=== PATIENT | male | born 1940 | race Caucasian/White ===

== ENCOUNTER → 2017-03-05 | Outpatient (CLI) | payer MEDICARE ==
[~2017-03-05] MED LIST: ATOR80TA PO; CLOP75TA22 PO; FENT-58 TD; GABA600T2 PO; LEVO750T26 PO; MELO-184 PO; METO25TA35 PO; OMEP40CA6 PO; OXYC15TA PO; TAMS-11 PO; ZOLP10TA PO
[2017-03-05 12:19] LABS: BLOOD UREA NITROGEN 10 mg/dL (7-18)
[2017-03-05 12:24] LABS: ASPARTATE AMINO TRANSFERASE 15 U/L (15-37)
== END | disposition home or self-care (01) ==
LOC: STAR 10:50
PROVIDERS: ATTEND Neurological Surgery
DX: Z01.818 Encounter for other preprocedural examination (principal); M48.06 Spinal stenosis, lumbar region; Z98.890 Other specified postprocedural states
CPT/HCPCS: 36415; 71020; 80053; 81003; 85025; 85610; 85730; 93005

== ENCOUNTER 2017-03-13 08:54 | Inpatient (IN) | payer MEDICARE ==
[~2017-03-13] VITALS: Ht 170.2 cm; Wt 62.9 kg
[~2017-03-13 08:54] MED LIST changes: +BACITRACIN 50,000 UNIT ONE; +BUPIVACAINE/PF-EPI 0.5% 1:200K ONE; -CLOP75TA22 PO; +CLOP75TA52 PO; -MELO-184 PO; +MELO15TA24 PO; +THROMBIN 5,000 UNIT VIAL TP ONE
[2017-03-13] MEDS ORDERED: LACTATED RINGERS 1,000 ML IV SCH (09:25)
[2017-03-13] MEDS ORDERED: NITR0.4T28 SL (09:30)
[2017-03-13] MEDS ORDERED: METF500T4 PO (09:30)
[2017-03-13] MEDS ORDERED: CARI350T PO (09:30)
[2017-03-13] MEDS ORDERED: LIDOCAINE 1%, 2ML SQ PRN (09:30)
[2017-03-13] MEDS ORDERED: FINA5TAB4 PO (09:30)
[2017-03-13] MEDS ORDERED: VANCOMYCIN 1,000 MG ONE (10:46)
[2017-03-13] MEDS ORDERED: FENTANYL PF 250 MCG/5ML ONE (10:56)
[2017-03-13] MEDS ORDERED: MIDAZOLAM 1 MG/ML, 2ML ONE (10:57)
[2017-03-13] MEDS ORDERED: ROCURONIUM 10 MG/ML ONE (11:40)
[2017-03-13] MEDS ORDERED: PROPOFOL 10 MG/ML, 20ML ONE (11:40)
[2017-03-13] MEDS ORDERED: DEXAMETHASONE 4 MG/ML, 1ML ONE (11:40)
[2017-03-13] MEDS ORDERED: PHENYLEPHRINE 10 MG/ML ONE (11:40)
[2017-03-13] MEDS ORDERED: ONDANSETRON 2MG/ML, 2ML ONE (11:40)
[2017-03-13] MEDS ORDERED: SUCCINYLCHOLINE 20 MG/ML, 10ML ONE (11:40)
[2017-03-13] MEDS ORDERED: CEFAZOLIN 1,000 MG ONE (11:40)
[2017-03-13] MEDS ORDERED: HYDROmorphone 2 MG/ML, 1ML ONE ×2 (13:30→13:57)
[2017-03-13] MEDS ORDERED: FENTANYL PF 100 MCG/2ML ONE (13:51)
[2017-03-13] MEDS ORDERED: ACETAMINOPHEN 650 MG/20.3 ML UDC ONE (13:51)
[2017-03-13] MEDS ORDERED: HYDROmorphone 1 MG/ML, 1ML ONE (13:51)
[2017-03-13] MEDS ORDERED: ACETAMINOPHEN 325 MG TABLET ONE (13:51)
[2017-03-13] MEDS ORDERED: OXYcodone 5 MG/5 ML ORAL.SOL UDC ONE (13:51)
[2017-03-13] MEDS: FENTANYL PF 100 MCG/2ML IV PRN ×2 (13:57→14:02)
[2017-03-13] MEDS: HYDROmorphone 1 MG/ML, 1ML IV PRN ×4 (13:58→15:00)
[2017-03-13] MEDS ORDERED: OXYcodone 5 MG/5 ML ORAL.SOL UDC PO PRN (14:00)
[2017-03-13] MEDS ORDERED: hydrALAzine 20 MG/ML, 1ML IV PRN (14:00)
[2017-03-13] MEDS ORDERED: MEPERIDINE/PF 25MG/0.5ML IVPush PRN (14:00)
[2017-03-13] MEDS ORDERED: PROMETHAZINE 25 MG/ML, 1ML IV PRN (14:00)
[2017-03-13] MEDS ORDERED: ACETAMINOPHEN 325 MG TABLET PO PRN (14:00)
[2017-03-13] MEDS ORDERED: MIDAZOLAM 1 MG/ML, 2ML IV PRN (14:00)
[2017-03-13] MEDS ORDERED: LABETALOL 5MG/ML, 20ML IV PRN ×2 (14:00→16:30)
[2017-03-13] MEDS ORDERED: ONDANSETRON 2MG/ML, 2ML IVPush PRN (14:00)
[2017-03-13] MEDS ORDERED: METOCLOPRAMIDE 5 MG/ML, 2ML IV PRN (14:00)
[2017-03-13] MEDS ORDERED: DIAZEPAM 5 MG/ML, 2ML ONE (14:12)
[2017-03-13] MEDS ORDERED: DIAZEPAM 5 MG/ML, 2ML IV ONE (14:30)
[2017-03-13 16:18] VITALS: BP 92/48
[2017-03-13] MEDS ORDERED: NITROGLYCERIN 0.4 MG BOTTLE (25 TABS) SL PRN (16:30)
[2017-03-13] MEDS ORDERED: BISACODYL 10 MG SUPP PR PRN (16:30)
[2017-03-13] MEDS ORDERED: DIPHENHYDRAMINE 50 MG CAPSULE PO PRN (16:30)
[2017-03-13] MEDS ORDERED: DIAZEPAM 5 MG/ML, 2ML IV PRN (16:30)
[2017-03-13] MEDS ORDERED: OXYcodone/APAP 5/325MG TABLET PO PRN (16:30)
[2017-03-13] MEDS ORDERED: MAGNESIUM HYDROXIDE 8%, 30ML UDC PO PRN (16:30)
[2017-03-13] MEDS ORDERED: PROMETHAZINE 25 MG/ML, 1ML IM PRN (16:30)
[2017-03-13] MEDS ORDERED: DIPHENHYDRAMINE 50 MG/ML, 1ML IM PRN (16:30)
[2017-03-13] MEDS ORDERED: morphine SULFATE 10 MG/ML, 1ML IV PRN (16:30)
[2017-03-13] MEDS ORDERED: DIPHENHYDRAMINE 50 MG/ML, 1ML IVPush PRN (16:30)
[2017-03-13] MEDS ORDERED: ONDANSETRON 2MG/ML, 2ML IV PRN (16:30)
[2017-03-13] MEDS: NS + 20MEQ KCL 1,000 ML IV SCH (17:53)
[2017-03-13] MEDS: metFORMIN 500 MG TABLET PO SCH (17:53)
[2017-03-13] MEDS: METOPROLOL TARTRATE 25 MG TABLET PO SCH (17:53)
[2017-03-13] MEDS: FENTANYL REMOVE PATCH NOTE XX SCH (18:24)
[2017-03-13] MEDS: FENTANYL 100 MCG PATCH TD SCH (18:24)
[2017-03-13 19:43] VITALS: BP 95/48
[2017-03-13] MEDS: CEFAZOLIN PMX 1GM/50ML 50 ML IVPB SCH (20:02)
[2017-03-13] MEDS: ATORVASTATIN 80 MG TABLET PO SCH (20:40)
[2017-03-13] MEDS: TAMSULOSIN 0.4 MG CAP.ER.24H PO SCH (20:40)
[2017-03-13] MEDS: OxyconTIN ER 15 MG TAB.ER PO SCH (20:40)
[2017-03-13] MEDS: GABAPENTIN 400 MG CAPSULE PO SCH (20:40)
[2017-03-13] MEDS: OMEPRAZOLE 20 MG CAPSULE.DR PO SCH (20:40)
[2017-03-13] MEDS: FINASTERIDE 5 MG TABLET PO SCH (20:40)
[2017-03-13] MEDS: ZOLPIDEM 10MG TABLET PO SCH (20:42)
[2017-03-13] MEDS: INSULIN REGULAR 100 UNITS/ML, 3ML VIAL SQ-INSULIN SCH (21:52)
[2017-03-14 00:19] VITALS: BP 103/57
[2017-03-14 02:52] VITALS: BP 104/55
[2017-03-14] MEDS: CEFAZOLIN PMX 1GM/50ML 50 ML IVPB SCH (04:02)
[2017-03-14] MEDS: NS + 20MEQ KCL 1,000 ML IV SCH ×2 (04:02→12:28)
[2017-03-14] MEDS: DIAZEPAM 5 MG TABLET PO PRN ×2 (04:06→15:49)
[2017-03-14 05:46] LABS: HEMATOCRIT 36.6 % (39.2-51.8); HEMOGLOBIN 12.2 g/dL (13.7-18.0)
[2017-03-14] MEDS: METOPROLOL TARTRATE 25 MG TABLET PO SCH ×2 (06:27→16:42)
[2017-03-14 06:30] LABS: BLOOD UREA NITROGEN 8 mg/dL (7-18)
[2017-03-14] MEDS: INSULIN REGULAR 100 UNITS/ML, 3ML VIAL SQ-INSULIN SCH ×4 (07:40→20:48)
[2017-03-14] MEDS: GABAPENTIN 400 MG CAPSULE PO SCH ×3 (08:26→20:41)
[2017-03-14] MEDS: metFORMIN 500 MG TABLET PO SCH ×2 (08:26→16:42)
[2017-03-14] MEDS: OMEPRAZOLE 20 MG CAPSULE.DR PO SCH ×2 (08:26→20:40)
[2017-03-14 08:27] VITALS: BP 107/55
[2017-03-14] MEDS: SENNA/DOCUSATE TABLET PO SCH (08:27)
[2017-03-14] MEDS: OxyconTIN ER 15 MG TAB.ER PO SCH (08:27)
[2017-03-14] MEDS ORDERED: OXYcodone IR 5MG TABLET PO PRN (10:30)
[2017-03-14] MEDS ORDERED: OXYcodone IR 30 MG TABLET PO PRN (11:00)
[2017-03-14 12:31] VITALS: BP 102/53
[2017-03-14] MEDS: HYDROcodone/APAP 5/325 TABLET PO PRN (15:49)
[2017-03-14 16:40] VITALS: BP 111/57
[2017-03-14 18:39] VITALS: BP 111/60
[2017-03-14] MEDS: ATORVASTATIN 80 MG TABLET PO SCH (20:40)
[2017-03-14] MEDS: TAMSULOSIN 0.4 MG CAP.ER.24H PO SCH (20:41)
[2017-03-14] MEDS: FINASTERIDE 5 MG TABLET PO SCH (20:41)
[2017-03-14] MEDS: ZOLPIDEM 10MG TABLET PO SCH (21:00)
[2017-03-15] MEDS: DIAZEPAM 5 MG TABLET PO PRN ×2 (00:25→07:07)
[2017-03-15] MEDS: HYDROcodone/APAP 5/325 TABLET PO PRN ×2 (00:25→07:07)
[2017-03-15] MEDS: NS + 20MEQ KCL 1,000 ML IV SCH ×2 (01:04→18:25)
[2017-03-15 01:12] VITALS: BP 91/54
[2017-03-15 05:28] LABS: HEMATOCRIT 40.6 % (39.2-51.8); HEMOGLOBIN 13.5 g/dL (13.7-18.0); WHITE BLOOD COUNT 11.3 x10^3/uL (3.4-10)
[2017-03-15 06:01] LABS: BLOOD UREA NITROGEN 6 mg/dL (7-18)
[2017-03-15 06:35] VITALS: BP 116/58
[2017-03-15] MEDS: INSULIN REGULAR 100 UNITS/ML, 3ML VIAL SQ-INSULIN SCH ×4 (06:43→21:00)
[2017-03-15] MEDS: METOPROLOL TARTRATE 25 MG TABLET PO SCH ×2 (06:43→17:08)
[2017-03-15] MEDS ORDERED: NICOTINE 21 MG/24 HR PATCH.TD24 TD ONE (09:00)
[2017-03-15] MEDS: SENNA/DOCUSATE TABLET PO SCH (10:25)
[2017-03-15] MEDS: OMEPRAZOLE 20 MG CAPSULE.DR PO SCH ×2 (10:25→20:55)
[2017-03-15] MEDS: GABAPENTIN 400 MG CAPSULE PO SCH ×3 (10:25→20:55)
[2017-03-15] MEDS: metFORMIN 500 MG TABLET PO SCH ×2 (10:25→17:08)
[2017-03-15] MEDS: OXYcodone IR 30 MG TABLET PO PRN ×2 (13:08→22:26)
[2017-03-15 15:12] VITALS: BP 120/67
[2017-03-15 19:16] VITALS: BP 132/71
[2017-03-15] MEDS: ZOLPIDEM 10MG TABLET PO SCH (20:55)
[2017-03-15] MEDS: FINASTERIDE 5 MG TABLET PO SCH (20:55)
[2017-03-15] MEDS: ATORVASTATIN 80 MG TABLET PO SCH (20:55)
[2017-03-15] MEDS: TAMSULOSIN 0.4 MG CAP.ER.24H PO SCH (20:55)
[2017-03-16 02:00] VITALS: BP 108/67
[2017-03-16] MEDS: METOPROLOL TARTRATE 25 MG TABLET PO SCH ×2 (05:51→17:37)
[2017-03-16] MEDS: OXYcodone IR 30 MG TABLET PO PRN (05:51)
[2017-03-16 05:53] VITALS: BP 110/69
[2017-03-16 06:01] LABS: BLOOD UREA NITROGEN 7 mg/dL (7-18)
[2017-03-16 06:30] VITALS: BP 90/51
[2017-03-16 06:55] LABS: HEMATOCRIT 36.8 % (39.2-51.8); HEMOGLOBIN 12.4 g/dL (13.7-18.0); WHITE BLOOD COUNT 11.7 x10^3/uL (3.4-10)
[2017-03-16] MEDS: NS + 20MEQ KCL 1,000 ML IV SCH ×2 (07:00→19:30)
[2017-03-16] MEDS: INSULIN REGULAR 100 UNITS/ML, 3ML VIAL SQ-INSULIN SCH ×4 (07:00→20:41)
[2017-03-16] MEDS: GABAPENTIN 400 MG CAPSULE PO SCH ×3 (08:50→20:44)
[2017-03-16] MEDS: SENNA/DOCUSATE TABLET PO SCH (08:50)
[2017-03-16] MEDS: OMEPRAZOLE 20 MG CAPSULE.DR PO SCH ×2 (08:50→20:44)
[2017-03-16] MEDS: metFORMIN 500 MG TABLET PO SCH ×2 (08:50→17:37)
[2017-03-16] MEDS: NICOTINE 21 MG/24 HR PATCH.TD24 TD SCH (12:16)
[2017-03-16 13:03] VITALS: BP 94/58
[2017-03-16] MEDS: OXYcodone IR 5MG TABLET PO PRN ×2 (14:57→20:54)
[2017-03-16] MEDS ORDERED: OXYcodone IR 5MG TABLET PO PRN (15:00)
[2017-03-16] MEDS: TIZANIDINE 4MG TABLET PO PRN (16:20)
[2017-03-16] MEDS: FENTANYL REMOVE PATCH NOTE XX SCH (16:30)
[2017-03-16] MEDS ORDERED: DIAZEPAM 5 MG/ML, 2ML IV PRN (16:30)
[2017-03-16] MEDS: FENTANYL 100 MCG PATCH TD SCH (16:30)
[2017-03-16 19:57] VITALS: BP 104/65
[2017-03-16] MEDS: TAMSULOSIN 0.4 MG CAP.ER.24H PO SCH (20:43)
[2017-03-16] MEDS: ZOLPIDEM 10MG TABLET PO SCH (20:43)
[2017-03-16] MEDS: FINASTERIDE 5 MG TABLET PO SCH (20:44)
[2017-03-16] MEDS: ATORVASTATIN 80 MG TABLET PO SCH (20:44)
[2017-03-17] MEDS: TIZANIDINE 4MG TABLET PO PRN (01:07)
[2017-03-17 03:15] VITALS: BP 139/73
[2017-03-17] MEDS: OXYcodone IR 5MG TABLET PO PRN ×4 (03:54→21:26)
[2017-03-17 06:02] VITALS: BP 102/62
[2017-03-17] MEDS: METOPROLOL TARTRATE 25 MG TABLET PO SCH ×2 (06:05→18:20)
[2017-03-17] MEDS: INSULIN REGULAR 100 UNITS/ML, 3ML VIAL SQ-INSULIN SCH ×4 (07:00→21:00)
[2017-03-17 07:55] VITALS: BP 111/64
[2017-03-17] MEDS: NS + 20MEQ KCL 1,000 ML IV SCH ×2 (08:00→20:30)
[2017-03-17] MEDS: metFORMIN 500 MG TABLET PO SCH ×2 (08:42→18:20)
[2017-03-17] MEDS: GABAPENTIN 400 MG CAPSULE PO SCH ×3 (08:42→21:26)
[2017-03-17] MEDS: OMEPRAZOLE 20 MG CAPSULE.DR PO SCH ×2 (08:43→21:26)
[2017-03-17] MEDS: NICOTINE 21 MG/24 HR PATCH.TD24 TD SCH (08:46)
[2017-03-17 08:56] LABS: ASPARTATE AMINO TRANSFERASE 58 U/L (15-37); BLOOD UREA NITROGEN 12 mg/dL (7-18)
[2017-03-17] MEDS: SENNA/DOCUSATE TABLET PO SCH (09:00)
[2017-03-17 09:01] LABS: HEMATOCRIT 39.7 % (39.2-51.8); HEMOGLOBIN 13.2 g/dL (13.7-18.0); WHITE BLOOD COUNT 9.5 x10^3/uL (3.4-10)
[2017-03-17 13:02] VITALS: BP 108/64
[2017-03-17] MEDS: DIAZEPAM 5 MG TABLET PO PRN (14:14)
[2017-03-17 19:20] VITALS: BP 126/67
[2017-03-17] MEDS: TAMSULOSIN 0.4 MG CAP.ER.24H PO SCH (21:26)
[2017-03-17] MEDS: ATORVASTATIN 80 MG TABLET PO SCH (21:26)
[2017-03-17] MEDS: FINASTERIDE 5 MG TABLET PO SCH (21:26)
[2017-03-17] MEDS: ZOLPIDEM 10MG TABLET PO SCH (21:26)
[2017-03-18 02:18] VITALS: BP 104/65
[2017-03-18] MEDS: OXYcodone IR 5MG TABLET PO PRN ×3 (05:27→22:56)
[2017-03-18] MEDS: DIAZEPAM 5 MG TABLET PO PRN (05:27)
[2017-03-18 05:39] VITALS: BP 100/54
[2017-03-18] MEDS: METOPROLOL TARTRATE 25 MG TABLET PO SCH ×2 (06:21→17:38)
[2017-03-18] MEDS: INSULIN REGULAR 100 UNITS/ML, 3ML VIAL SQ-INSULIN SCH ×4 (07:00→20:31)
[2017-03-18 07:03] VITALS: BP 96/57
[2017-03-18] MEDS: SENNA/DOCUSATE TABLET PO SCH (09:00)
[2017-03-18] MEDS: NS + 20MEQ KCL 1,000 ML IV SCH ×2 (09:00→20:32)
[2017-03-18] MEDS: GABAPENTIN 400 MG CAPSULE PO SCH ×3 (09:25→20:27)
[2017-03-18] MEDS: metFORMIN 500 MG TABLET PO SCH ×2 (09:25→17:36)
[2017-03-18] MEDS: OMEPRAZOLE 20 MG CAPSULE.DR PO SCH ×2 (09:25→20:28)
[2017-03-18] MEDS: NICOTINE 21 MG/24 HR PATCH.TD24 TD SCH (09:25)
[2017-03-18 15:56] VITALS: BP 115/71
[2017-03-18 17:23] LABS: IS PT STATUS REG ER OR PRE ER? NO
[2017-03-18 18:55] VITALS: BP 113/63
[2017-03-18] MEDS: ATORVASTATIN 80 MG TABLET PO SCH (20:28)
[2017-03-18] MEDS: FINASTERIDE 5 MG TABLET PO SCH (20:28)
[2017-03-18] MEDS: ZOLPIDEM 10MG TABLET PO SCH (20:31)
[2017-03-18] MEDS: TAMSULOSIN 0.4 MG CAP.ER.24H PO SCH (22:56)
[2017-03-18 22:58] VITALS: BP 105/64
[2017-03-19 03:21] VITALS: BP 118/70
[2017-03-19] MEDS: METOPROLOL TARTRATE 25 MG TABLET PO SCH ×2 (05:50→15:48)
[2017-03-19 05:53] VITALS: BP 118/67
[2017-03-19 06:22] LABS: BLOOD UREA NITROGEN 7 mg/dL (7-18)
[2017-03-19] MEDS: INSULIN REGULAR 100 UNITS/ML, 3ML VIAL SQ-INSULIN SCH ×3 (07:00→15:56)
[2017-03-19] MEDS: OXYcodone IR 5MG TABLET PO PRN ×3 (07:48→15:49)
[2017-03-19] MEDS: OMEPRAZOLE 20 MG CAPSULE.DR PO SCH (07:48)
[2017-03-19] MEDS: GABAPENTIN 400 MG CAPSULE PO SCH ×2 (07:49→15:50)
[2017-03-19] MEDS: TIZANIDINE 4MG TABLET PO PRN (07:50)
[2017-03-19] MEDS: NICOTINE 21 MG/24 HR PATCH.TD24 TD SCH (07:51)
[2017-03-19 07:52] VITALS: BP 101/63
[2017-03-19] MEDS: metFORMIN 500 MG TABLET PO SCH ×2 (08:10→15:48)
[2017-03-19] MEDS: SENNA/DOCUSATE TABLET PO SCH (09:00)
[2017-03-19 09:41] LABS: HEMATOCRIT 37.5 % (39.2-51.8); HEMOGLOBIN 12.6 g/dL (13.7-18.0); WHITE BLOOD COUNT 8.1 x10^3/uL (3.4-10)
[2017-03-19] MEDS ORDERED: POTASSIUM CHLORIDE 20 MEQ TAB.ER.PRT PO SCH (10:00)
[2017-03-19] MEDS: NS + 20MEQ KCL 1,000 ML IV SCH (10:00)
[2017-03-19 12:42] VITALS: BP 114/70
[2017-03-19] MEDS: FENTANYL 100 MCG PATCH TD SCH (15:47)
[2017-03-19] MEDS: FENTANYL REMOVE PATCH NOTE XX SCH (15:48)
== END 2017-03-19 16:11 | DRG 459 ==
LOC: ORIP 08:54 → 4NOR 16:09
PROVIDERS: ADMIT Neurological Surgery; ATTEND Neurological Surgery
PROC: 0SG1071 Fusion of 2 or more Lumbar Vertebral Joints with Autologous Tissue Substitute, Posterior Approach, Posterior Column, Open Approach (ICD-10-PCS; 2017-03-13)
PROC: 0SG3071 Fusion of Lumbosacral Joint with Autologous Tissue Substitute, Posterior Approach, Posterior Column, Open Approach (ICD-10-PCS; principal; 2017-03-13 12:15)
DX: M48.06 Spinal stenosis, lumbar region (principal); E43 Unspecified severe protein-calorie malnutrition; E11.9 Type 2 diabetes mellitus without complications; M41.9 Scoliosis, unspecified; E87.6 Hypokalemia; I25.10 Atherosclerotic heart disease of native coronary artery without angina pectoris; M54.10 Radiculopathy, site unspecified; Z95.1 Presence of aortocoronary bypass graft; Z95.5 Presence of coronary angioplasty implant and graft; Z88.0 Allergy status to penicillin; Z88.8 Allergy status to other drugs, medicaments and biological substances
CPT/HCPCS: 36415; 71010; 72100; 80048; 80053; 81003; 82962; 84484; 85025; 86850; 86900; 93005; J0690; J1100; J1170; J1815; J2250; J2270; J2405; J2704; J3010; J3360; J3370; J3480; J3490; C1762; J0330; J2370; J7120

== ENCOUNTER → 2017-08-22 | Outpatient (CLI) | payer MEDICARE ==
[~2017-08-22] MED LIST changes: -BACITRACIN 50,000 UNIT ONE; -BUPIVACAINE/PF-EPI 0.5% 1:200K ONE; +CARI350T PO; +FINA5TAB4 PO; +METF500T4 PO; +NITR0.4T28 SL; -THROMBIN 5,000 UNIT VIAL TP ONE
== END | disposition home or self-care (01) ==
LOC: CVU 08:38
PROVIDERS: ATTEND Internal Medicine Cardiovascular Disease
DX: I65.23 Occlusion and stenosis of bilateral carotid arteries (principal); I25.10 Atherosclerotic heart disease of native coronary artery without angina pectoris; E78.5 Hyperlipidemia, unspecified; I77.4 Celiac artery compression syndrome; I74.09 Other arterial embolism and thrombosis of abdominal aorta; I71.4 Abdominal aortic aneurysm, without rupture; Z95.1 Presence of aortocoronary bypass graft; I10 Essential (primary) hypertension; Z87.891 Personal history of nicotine dependence
CPT/HCPCS: 93880; 93922; 93925; 93978

== ENCOUNTER 2017-10-31 13:05 | Emergency (ER) | payer MEDICARE ==
[~2017-10-31] VITALS: Ht 170.2 cm; Wt 59.1 kg
[~2017-10-31 13:05] MED LIST changes: +ASPI-496 PO; +CARI350T14 PO; +DOXY25TA18 PO; +FLAX1000 PO; +GABA300C PO; +GLUC500T11 PO; +LORA10TA75 PO; +MULT-326 PO; +NITR0.4T SL; +OMEG-13 PO; +OMEG-137 PO; +SILD100T PO; +TOLT4CAP12 PO; +Vitamin B INJ
[2017-10-31 13:59] LABS: BASOPHILS # (AUTO) 0.03 x10^3/uL (0-0.1); BASOPHILS % (AUTO) 0 % (0-1); EOSINOPHILS # (AUTO) 0.19 x10^3/uL (0-0.4); EOSINOPHILS % (AUTO) 2 % (1-7); LYMPHOCYTES # (AUTO) 2.27 x10^3/uL (1-3.4); LYMPHOCYTES % (AUTO) 28 % (22-44); MD NO; MEAN CORPUSCULAR HEMOGLOBIN 30.2 pg (27.5-34.5); MEAN CORPUSCULAR HGB CONC 33.6 g/dL (33.2-36.2); MEAN PLATELET VOLUME 6.8 fL (7.4-10.4); MONOCYTES # (AUTO) 0.72 x10^3/uL (0.2-0.8); MONOCYTES % (AUTO) 9 % (2-9); NEUTROPHILS # (AUTO) 4.82 x10^3/uL (1.8-6.8); NEUTROPHILS % (AUTO) 60 % (42-75); PLATELET COUNT 231 x10^3/uL (130-400); RED BLOOD COUNT 4.42 x10^6/uL (4.38-5.82); RED CELL DISTRIBUTION WIDTH 17.5 % (9.4-14.8)
[2017-10-31] MEDS ORDERED: SODIUM CHLORIDE FLUSH 10ML SYR IVF ONE (14:00)
[2017-10-31 14:03] LABS: INTERNATIONAL NORMALIZED RATIO 1.13 (0.93-1.1); PROTHROMBIN TIME 11.7 Seconds (9.6-11.5)
[2017-10-31 14:06] LABS: ALANINE AMINOTRANSFERASE 31 U/L (12-78); ALBUMIN 3.3 g/dL (3.4-5.0); ANION GAP 10 mmol/L (5-15); CALCIUM 8.4 mg/dL (8.5-10.1); CHLORIDE 105 mmol/L (98-107); CREATININE 0.86 mg/dL (0.7-1.3)
[2017-10-31 14:08] LABS: ALKALINE PHOSPHATASE 100 U/L (45-117); BILIRUBIN,TOTAL 0.6 mg/dL (0.2-1.0); TOTAL PROTEIN 7.6 g/dL (6.4-8.2)
[2017-10-31] MEDS ORDERED: FENT1PAT77 TP (15:39)
[2017-10-31] MEDS ORDERED: CLOPIDOGREL 75 MG TABLET ONE (16:29)
[2017-10-31] MEDS ORDERED: CLOPIDOGREL 75 MG TABLET PO ONE (16:30)
[2017-10-31] MEDS ORDERED: CLOP75TA52 PO (16:34)
[2017-10-31 16:44] VITALS: BP 106/68
== END 2017-10-31 16:45 | disposition home or self-care (01) ==
LOC: ED 16:16
DX: R60.0 Localized edema (principal); M25.571 Pain in right ankle and joints of right foot; I10 Essential (primary) hypertension; E78.00 Pure hypercholesterolemia, unspecified; Z79.82 Long term (current) use of aspirin; Z88.0 Allergy status to penicillin; Z90.49 Acquired absence of other specified parts of digestive tract; Z95.1 Presence of aortocoronary bypass graft
CPT/HCPCS: 36415; 80053; 85025; 85610; 87040; 93922; 99285

== ENCOUNTER → 2018-07-02 | Outpatient (CLI) | payer MEDICARE ==
[~2018-07-02] MED LIST changes: +FENT1PAT77 TP; -FLAX1000 PO; +FLAX10004 PO; +METF500T17 PO; -METF500T4 PO
== END | disposition home or self-care (01) ==
LOC: RAD 09:30
PROVIDERS: ATTEND Otolaryngology Facial Plastic Surgery
DX: R13.10 Dysphagia, unspecified (principal)
CPT/HCPCS: 74230

== ENCOUNTER 2018-12-26 18:23 | Emergency (ER) | payer MEDICARE ==
[~2018-12-26] VITALS: Ht 172.7 cm; Wt 65.3 kg
[~2018-12-26 18:23] MED LIST changes: -GABA600T2 PO; +GABA600T7 PO
[2018-12-26 19:18] LABS: ALBUMIN 3.3 g/dL (3.4-5.0); ANION GAP 6 mmol/L (5-15); CALCIUM 8.4 mg/dL (8.5-10.1); CHLORIDE 107 mmol/L (98-107)
[2018-12-26 19:23] LABS: ALANINE AMINOTRANSFERASE 48 U/L (12-78); ALKALINE PHOSPHATASE 86 U/L (45-117); BILIRUBIN,TOTAL 0.4 mg/dL (0.2-1.0); CREATININE 0.81 mg/dL (0.7-1.3); TOTAL PROTEIN 7.4 g/dL (6.4-8.2)
[2018-12-26 19:48] LABS: ANISOCYTOSIS 1+; BASOPHILS # (AUTO) 0.04 x10^3/uL (0-0.1); BASOPHILS % (AUTO) 1 % (0-1); EOSINOPHILS # (AUTO) 0.13 x10^3/uL (0-0.4); EOSINOPHILS % (AUTO) 2 % (1-7); LYMPHOCYTES # (AUTO) 2.56 x10^3/uL (1-3.4); LYMPHOCYTES % (AUTO) 37 % (22-44); MD MORPH REVIEW ONLY; MEAN CORPUSCULAR HEMOGLOBIN 27.6 pg (27.5-34.5); MEAN CORPUSCULAR HGB CONC 32.9 g/dL (33.2-36.2); MEAN CORPUSCULAR VOLUME 84.1 fL (81-97); MEAN PLATELET VOLUME 6.4 fL (7.4-10.4); MONOCYTES # (AUTO) 0.73 x10^3/uL (0.2-0.8); MONOCYTES % (AUTO) 10 % (2-9); NEUTROPHILS # (AUTO) 3.54 x10^3/uL (1.8-6.8); NEUTROPHILS % (AUTO) 51 % (42-75); OVALOCYTES 1+; PLATELET COUNT 403 x10^3/uL (130-400); RED BLOOD COUNT 4.41 x10^6/uL (4.38-5.82)
[2018-12-26 19:49] LABS: <PLATELET ESTIMATE> INCREASED; <PLT MORPHOLOGY> NORMAL PLT MORPH
[2018-12-26 20:37] LABS: INTERNATIONAL NORMALIZED RATIO 1.07 (0.93-1.1); PROTHROMBIN TIME 11.2 Seconds (9.6-11.5)
[2018-12-26 20:40] LABS: RED CELL DISTRIBUTION WIDTH 20.3 % (9.4-14.8)
[2018-12-26 20:45] LABS: MICROSCOPIC NOT IND
[2018-12-26 20:54] LABS: CULTURE INDICATED? NO
[2018-12-26 21:05] VITALS: BP 138/76
[2018-12-26] MEDS ORDERED: NAPROXEN 500 MG TABLET PO ONE (21:30)
[2018-12-26] MEDS ORDERED: BACITRACIN ZINC OINT 500U/GM, 0.9 GM ONE (21:32)
[2018-12-26] MEDS ORDERED: NAPROXEN 500 MG TABLET ONE (21:33)
[2018-12-26] MEDS ORDERED: OMNIPAQUE 350 MG/ML, 100ML BOTTLE ONE (22:54)
== END 2018-12-26 22:16 | disposition home or self-care (01) ==
LOC: ED 22:14
DX: S41.112A Laceration without foreign body of left upper arm, initial encounter (principal); G89.11 Acute pain due to trauma; R10.32 Left lower quadrant pain; E78.00 Pure hypercholesterolemia, unspecified; I12.9 Hypertensive chronic kidney disease with stage 1 through stage 4 chronic kidney disease, or unspecified chronic kidney disease; N18.9 Chronic kidney disease, unspecified; W19.XXXA Unspecified fall, initial encounter; Y93.89 Activity, other specified; Y92.098 Other place in other non-institutional residence as the place of occurrence of the external cause; Y99.8 Other external cause status
CPT/HCPCS: 36415; 74022; 74177; 80053; 81003; 83690; 83880; 85025; 85610; 85730; 93005; 99284; Q9967

== ENCOUNTER → 2019-03-23 | Outpatient (CLI) | payer MEDICARE ==
[~2019-03-23] MED LIST changes: -NITR0.4T SL; +NITR0.4T41 SL; +REGADENOSON 0.4 MG/5 ML SYRINGE ONE
== END | disposition home or self-care (01) ==
LOC: CFH 07:21
PROVIDERS: ATTEND Internal Medicine Cardiovascular Disease
DX: I08.0 Rheumatic disorders of both mitral and aortic valves (principal); I10 Essential (primary) hypertension; I73.9 Peripheral vascular disease, unspecified; I25.10 Atherosclerotic heart disease of native coronary artery without angina pectoris; I25.9 Chronic ischemic heart disease, unspecified
CPT/HCPCS: 78452; 93017; 93306; A9502; J2785

== ENCOUNTER 2019-08-10 07:29 | Inpatient (IN) | payer MEDICARE ==
[~2019-08-10] VITALS: Ht 170.2 cm; Wt 66.7 kg
[~2019-08-10 07:29] MED LIST changes: +OMEP40CA42 PO; -OMEP40CA6 PO; -REGADENOSON 0.4 MG/5 ML SYRINGE ONE
[2019-08-10 08:10] LABS: RAPID INFLUENZA A Negative (Negative); RAPID INFLUENZA B Negative (Negative)
[2019-08-10] MEDS ORDERED: CEFTRIAXONE PMX 1GM/50ML 50 ML ONE (08:26)
[2019-08-10] MEDS ORDERED: AZITHROMYCIN 500 MG in SODIUM CHLORIDE 0.9% 250 ML IV ONE (08:30)
[2019-08-10] MEDS ORDERED: CEFTRIAXONE PMX 1GM/50ML 50 ML IV ONE (08:30)
--- NOTE | 2019-08-10 08:38 | NUR ---
antibiotic infusing after 2 sets of cultures
[2019-08-10 08:49] LABS: MEAN CORPUSCULAR HEMOGLOBIN 32.8 pg (27.5-34.5); MEAN CORPUSCULAR HGB CONC 33.1 g/dL (33.2-36.2); MEAN CORPUSCULAR VOLUME 99.3 fL (81-97); MEAN PLATELET VOLUME 7.1 fL (7.4-10.4); PLATELET COUNT 170 x10^3/uL (130-400); RED BLOOD COUNT 5.01 x10^6/uL (4.38-5.82); RED CELL DISTRIBUTION WIDTH 15.4 % (9.4-14.8)
--- NOTE | 2019-08-10 08:50 | NUR ---
REPORT TO JUANITA RN AND PT TO BE TRANSPORTED TO FLOOR
[2019-08-10 09:05] LABS: MD YES
[2019-08-10 09:06] LABS: MONOS#(MANUAL) 0.24 x10^3/uL (0.3-2.7); MONOS% (MANUAL) 2 % (2-9)
[2019-08-10 09:07] LABS: ANISOCYTOSIS 1+; BAND#(MANUAL) 3.07 x10^3/uL; BANDS%(MANUAL) 26 % (0-7); LYMPH#(MANUAL) 0.83 x10^3/uL (1-3.4); LYMPHS% (MANUAL) 7 % (22-44); SEG#(MANUAL) 7.67 x10^3/uL (1.8-6.8); SEGS% (MANUAL) 65 % (42-75)
[2019-08-10 09:08] LABS: <PLATELET ESTIMATE> ADEQUATE; <PLT MORPHOLOGY> NORMAL PLT MORPH
--- NOTE | 2019-08-10 09:11 | NUR ---
HOSPITALIST AT BEDSIDE. PT REMAINS DROWSY. CONTINUE TO MONITOR
[2019-08-10] MEDS ORDERED: NICOTINE 14MG/24 HR PATCH.TD24 TD SCH (09:30)
[2019-08-10] MEDS ORDERED: POLYETHYLENE GLYCOL 17 GM PACKET PO PRN (09:30)
[2019-08-10] MEDS ORDERED: ALBUTEROL/IPRATROPIUM 2.5MG/0.5MG, 3 ML HHN PRN (09:30)
[2019-08-10] MEDS ORDERED: ACETAMINOPHEN 325 MG TABLET PO PRN (09:30)
[2019-08-10] MEDS ORDERED: ENALAPRILAT 1.25 MG/ML, 2ML IVPush PRN (09:30)
[2019-08-10] MEDS ORDERED: SODIUM CHLORIDE 0.9% 1,000ML IVBOLUS ONE ×2 (09:30→11:00)
--- NOTE | 2019-08-10 09:35 | NUR ---
REPORT TO JUANITA KERNS. PT TO BE TRANSPORTED TO FLOOR.
[2019-08-10 09:51] LABS: ALANINE AMINOTRANSFERASE 62 U/L (12-78); ALBUMIN 2.8 g/dL (3.4-5.0); ANION GAP 12 mmol/L (5-15); CALCIUM 8.1 mg/dL (8.5-10.1); CHLORIDE 106 mmol/L (98-107); CREATININE 1.22 mg/dL (0.7-1.3)
[2019-08-10 09:54] LABS: ALKALINE PHOSPHATASE 90 U/L (45-117); BILIRUBIN,TOTAL 1.1 mg/dL (0.2-1.0); TOTAL PROTEIN 6.5 g/dL (6.4-8.2)
--- NOTE | 2019-08-10 09:58 | NUR ---
DR MAGALLANES RESIDENT MADE AWARE OF RECTAL TEMP
[2019-08-10] MEDS ORDERED: ACETAMINOPHEN 650 MG SUPP ONE (10:02)
[2019-08-10] MEDS: ACETAMINOPHEN 650 MG SUPP PR PRN ×2 (10:18→15:56)
--- NOTE | 2019-08-10 10:18 | NUR ---
RECTAL TEMP 102. MEDICATED FOR SAME.
[2019-08-10] MEDS: SODIUM CHLORIDE 0.9% 1,000 ML IV SCH ×2 (10:38→21:38)
--- NOTE | 2019-08-10 11:03 | NUR ---
resident aware of current bp and order received for additional iv bolus. resident now at [facility]
[2019-08-10] MEDS ORDERED: ALBUTEROL/IPRATROPIUM 2.5MG/0.5MG, 3 ML ONE (11:07)
--- NOTE | 2019-08-10 11:15 | NUR ---
REPORT TO MAEGAN KERNS. PT TO BE MOVED TO TR3.
[2019-08-10] MEDS: NOREPINEPHRINE 4 MG in SODIUM CHLORIDE 0.9% 246 ML IV PRN ×3 (11:53→22:15)
--- NOTE | 2019-08-10 11:56 | NUR ---
report received from SAUMYA Greco; pt moved to trauma 3 for central line placement as patient became hypotensive, refractory to 2L fluid bolus. signed consent not obtained due to acuity of illness. central line placed to right IJ by CLAUDIA Montiel, pt tolerated well. levophed initiated to PIV with MD order while awaiting central line placement, levophed initiated at 5 mcg/min per MD verbal order, titrated to 10mcg/min to meet target BP. all monitors in place, xray completed, awaiting read and MD ok to switch levophed to IJ. pt is drowsy, resps mildly labored, maintaining spo2 >90% on oxymask at 6L/min at this time.
--- NOTE | 2019-08-10 12:13 | NUR ---
report called to receiving SAUMYA Chavez pt to be transported to room 559 shortly.
[2019-08-10] MEDS ORDERED: CLINDAMYCIN PMX 300MG/50ML 50 ML IV SCH (12:30)
[2019-08-10] MEDS ORDERED: IBUPROFEN 600 MG TABLET PO PRN (12:37)
[2019-08-10 12:42] VITALS: BP 79/47
[2019-08-10] MEDS ORDERED: VASOPRESSIN 100 UNIT in SODIUM CHLORIDE 0.9% 495 ML IV PRN (13:00)
[2019-08-10] MEDS ORDERED: FENTANYL 100 MCG PATCH TD SCH (13:00)
[2019-08-10] MEDS: ALBUTEROL/IPRATROPIUM 2.5MG/0.5MG, 3 ML NPPB SCH ×3 (14:00→22:00)
[2019-08-10] MEDS ORDERED: AZITHROMYCIN 500 MG in SODIUM CHLORIDE 0.9% 250 ML IV SCH (14:00)
[2019-08-10] MEDS: HEPARIN 5,000 UNITS/ML, 1ML SQ SCH ×2 (15:56→23:55)
[2019-08-10] MEDS ORDERED: morphine SULFATE 10 MG/ML, 1ML IVPush ONE (16:30)
[2019-08-10] MEDS ORDERED: NOREPINEPHRINE 1 MG/ML, 4ML ONE (19:09)
[2019-08-10] MEDS ORDERED: CEFTRIAXONE PMX 2GM/50ML 50 ML IV SCH (20:30)
[2019-08-10] MEDS ORDERED: METOPROLOL TARTRATE 25 MG TABLET PO SCH (21:00)
[2019-08-10] MEDS ORDERED: ATORVASTATIN 80 MG TABLET PO SCH (21:00)
[2019-08-10] MEDS ORDERED: TAMSULOSIN 0.4 MG CAP.ER.24H PO SCH (21:00)
[2019-08-10] MEDS ORDERED: FINASTERIDE 5 MG TABLET PO SCH (21:00)
[2019-08-10] MEDS ORDERED: BUDESONIDE 0.5 MG/2 ML INHA INH SCH (21:00)
[2019-08-10] MEDS ORDERED: OMEPRAZOLE 20 MG CAPSULE.DR PO SCH (21:00)
[2019-08-11] MEDS: NOREPINEPHRINE 4 MG in SODIUM CHLORIDE 0.9% 246 ML IV PRN ×2 (01:06→05:01)
[2019-08-11] MEDS ORDERED: HALOPERIDOL 5 MG/ML ONE (04:54)
[2019-08-11] MEDS ORDERED: HALOPERIDOL 5 MG/ML IM ONE (05:00)
[2019-08-11 05:08] VITALS: BP 120/68
[2019-08-11] MEDS ORDERED: LORazepam INTENSOL 2 MG/ML SL PRN (05:30)
[2019-08-11] MEDS ORDERED: HALOPERIDOL 2 MG/ML ORAL SOL SL PRN (05:30)
[2019-08-11] MEDS ORDERED: PROCHLORPERAZINE 5 MG/ML, 2ML IVPush PRN (05:30)
[2019-08-11] MEDS ORDERED: MORPHINE SULFATE 4 MG/ML, 1ML IVPush PRN ×2 (05:30)
[2019-08-11] MEDS ORDERED: LORazepam 2 MG/ML, 1ML ONE (05:43)
[2019-08-11] MEDS ORDERED: LORazepam 2 MG/ML, 1ML IVPush PRN (06:00)
[2019-08-11] MEDS ORDERED: TOLTERODINE LA 4MG CAP.ER.24H PO SCH (09:00)
[2019-08-11] MEDS ORDERED: CLOPIDOGREL 75 MG TABLET PO SCH (09:00)
[2019-08-11] MEDS ORDERED: ASPIRIN 81 MG TABLET EC PO SCH (09:00)
[2019-08-11] MEDS ORDERED: AZITHROMYCIN 250 MG TABLET PO SCH (09:00)
[2019-08-11] MEDS ORDERED: AZITHROMYCIN 500 MG TABLET PO ONE (09:00)
[2019-08-11] MEDS ORDERED: CEFTRIAXONE PMX 1GM/50ML 50 ML IV SCH (09:30)
[2019-08-13] MEDS ORDERED: FENTANYL REMOVE PATCH NOTE XX SCH (13:00)
== END 2019-08-11 07:10 | disposition expired | DRG 871 ==
LOC: ED 09:01 → EDIP 09:10 → CCU 12:22 → 4NW 08-11 06:35
PROVIDERS: ADMIT Family Medicine; ATTEND Family Medicine
PROC: 02H633Z Insertion of Infusion Device into Right Atrium, Percutaneous Approach (ICD-10-PCS; principal; 2019-08-10)
DX: A41.9 Sepsis, unspecified organism (principal); J15.9 Unspecified bacterial pneumonia; J96.01 Acute respiratory failure with hypoxia; R65.21 Severe sepsis with septic shock; J44.0 Chronic obstructive pulmonary disease with (acute) lower respiratory infection; E11.51 Type 2 diabetes mellitus with diabetic peripheral angiopathy without gangrene; E78.00 Pure hypercholesterolemia, unspecified; F17.200 Nicotine dependence, unspecified, uncomplicated; I10 Essential (primary) hypertension; I25.10 Atherosclerotic heart disease of native coronary artery without angina pectoris; N40.0 Benign prostatic hyperplasia without lower urinary tract symptoms; Z51.5 Encounter for palliative care; Z66 Do not resuscitate; Z86.73 Personal history of transient ischemic attack (TIA), and cerebral infarction without residual deficits; Z95.1 Presence of aortocoronary bypass graft; Z82.49 Family history of ischemic heart disease and other diseases of the circulatory system
CPT/HCPCS: 36415; 36556; 36600; 71045; 71046; 80053; 82533; 82803; 83605; 84145; 85025; 87040; 87077; 87081; 87147; 87186; 87400; 93005; 94640; 96374; 96375; G0378; J0456; J0696; J1644; J7620; J1630; J2270; J7030; J7050